=== PATIENT | male | born 1955 | race Hispanic/Latino ===

== ENCOUNTER 2017-03-06 13:47 | Emergency (ER) | payer MEDICARE ==
--- NOTE | 2017-03-06 14:16 | C.PDOC ---
History Of Present Illness 61 y/o male with history of depression, alcoholism, and polysubstance abuse, presents to ER requesting detox. Patient also reports history of liver disease. Pt states he has suicidal thoughts when drinking. Denies headache, nausea, or vomiting. Chief Complaint (Nursing): Substance Abuse History Per: Patient History/Exam Limitations: no limitations Onset/Duration Of Symptoms: Persistent Current Symptoms Are (Timing): Still Present Modifying Factor(s): Alcohol Associated Symptoms: Depression Recent travel outside of the [place]: No Past Medical History Reviewed: Historical Data, Nursing Documentation, Vital Signs Vital Signs: Last Vital Signs Temp 98.6 F 03/06/17 16:33 Pulse 67 03/06/17 16:33 Resp 16 03/06/17 16:33 BP 126/83 03/06/17 16:33 Pulse Ox 95 03/06/17 16:33 - Medical History PMH: Anxiety, Hepatitis, HIV (HIV+) Denies: Chronic Kidney Disease (Denied) - [facility] Procedures DETOXIFICATION SERVICES FOR SUBSTANCE ABUSE TREATMENT (12/31/16) GROUP FLOOR COVERINGS INSTALLER FOR SUBSTANCE ABUSE TREATMENT, PSYCHOEDUCATION (12/31/16) GROUP FLOOR COVERINGS INSTALLER FOR SUBSTANCE ABUSE, COGNITIVE BEHAVIORAL (12/31/16) INDIV FLOOR COVERINGS INSTALLER FOR SUBSTANCE ABUSE TREATMENT, PSYCHOEDUCATION (12/31/16) INDIV FLOOR COVERINGS INSTALLER FOR SUBSTANCE ABUSE, COGNITIVE BEHAVIORAL (12/31/16) INDIV PSYCHOTHERAPY FOR SUBSTANCE ABUSE TREATMENT, SUPPORT (12/31/16) Family History: States: Unknown Family Hx - Social History Hx Tobacco Use: Yes (former smoker) Hx Alcohol Use: Yes Hx Substance Use: Yes (Xanax) - Immunization History Hx Influenza Vaccination: Yes Review Of Systems Except As Marked, All Systems Reviewed And Found Negative. Constitutional: Negative for: Fever, Chills Cardiovascular: Negative for: Chest Pain, Palpitations Respiratory: Negative for: Cough Gastrointestinal: Negative for: Nausea, Vomiting, Abdominal Pain Skin: Negative for: Rash Neurological: Negative for: Weakness, Numbness, Headache Psych: Positive for: Depression Physical Exam - Physical Exam Appears: Non-toxic, Other (muscle wasting to face) Skin: Warm, Dry Head: Atraumatic, Normacephalic Eye(s): bilateral: Normal Inspection Teeth: Other (poor dentition) Chest: Symmetrical Cardiovascular: Rhythm Regular Respiratory: Normal Breath Sounds, No Rales, No Rhonchi, No Wheezing Gastrointestinal/Abdominal: Soft, No Tenderness Back: Normal Inspection Extremity: Normal ROM, Capillary Refill (< 2 sec. ) Neurological/Psych: Oriented x3, Normal Speech, Normal Cognition ED Course And Treatment - Laboratory Results Result Diagrams: 03/06/17 14:38 03/06/17 14:38 O2 Sat by Pulse Oximetry: 97 (RA) Pulse Ox Interpretation: Normal Medical Decision Making Medical Decision Making: patient seen and evaluated by crisis, they discussed with psych. he does not meet detox criteria at this time. Disposition Counseled Patient/Family Regarding: Studies Performed, Diagnosis, Need For Followup - Disposition Disposition: HOME/ ROUTINE Disposition Time: 17:42 Condition: STABLE Additional Instructions: Please follow up with your doctor. If you want to be seen by psychiatry please call the counceling and resource center at: [phone] Instructions: Abuse of Alcohol (ED) Forms: General Discharge Instructions - POA Present On Arrival: None - Clinical Impression Clinical Impression: Alcohol abuse - Scribe Statement The provider has reviewed the documentation as recorded by the Raffi Gomez Provider Scribe Attestation: All medical record entries made by the Arceliaibelba were at my direction and personally dictated by me. I have reviewed the chart and agree that the record accurately reflects my personal performance of the history, physical exam, medical decision making, and the department course for this patient. I have also personally directed, reviewed, and agree with the discharge instructions and disposition.
[2017-03-06 14:41] LABS: BASO % 0.2 % (0.0-2.0); EOS % 0.1 % (0.0-4.0); HEMATOCRIT 38.1 % (35.0-51.0); LYMPH # 0.9 K/uL (1.0-4.3); LYMPH % 11.7 % (20.0-40.0); MEAN CELL VOLUME 87.4 fL (80.0-94.0); MEAN CORPUSCULAR HEMOGLOBIN 27.9 pg (27.0-31.0); MEAN CORPUSCULAR HGB CONC 31.9 g/dL (33.0-37.0); MEAN PLATELET VOLUME 8.6 fL (7.2-11.7); MONO # 0.5 K/uL (0.0-0.8); MONO % 6.8 % (0.0-10.0); RED CELL DISTRIBUTION WIDTH 15.6 % (11.5-14.5); WHITE BLOOD COUNT 7.3 K/uL (4.8-10.8)
[2017-03-06 14:49] LABS: CHLORIDE 99 mmol/L (98-107)
[2017-03-06 14:50] LABS: POTASSIUM 3.7 mmol/L (3.6-5.2); SODIUM 138 mmol/L (132-148)
[2017-03-06 14:52] LABS: ALB/GLOB RATIO 1.6 (1.0-2.1); ALKALINE PHOSPHATASE 54 U/L (38-126); ALT/SGPT 44 U/L (21-72); AST/SGOT 51 U/L (17-59); BILIRUBIN,TOTAL 1.6 mg/dL (0.2-1.3); BLOOD UREA NITROGEN 31 mg/dL (9-20); CARBON DIOXIDE 28 mmol/L (22-30); GFR AFRICAN-AMERICAN > 60; GLUCOSE,RANDOM 102 mg/dL (75-110); TOTAL PROTEIN 6.3 g/dL (6.3-8.3)
[2017-03-06 14:53] LABS: ALCOHOL SERUM 28 mg/dl (0-10); CALCIUM 8.6 mg/dl (8.6-10.4)
[2017-03-06 15:19] LABS: RBC URINE 2 /hpf (0-3); URINE BILIRUBIN NEGATIVE (NEGATIVE); URINE BLOOD NEGATIVE (NEGATIVE); URINE COLOR Yellow (YELLOW); URINE GLUCOSE (UA) NORMAL (Normal); URINE KETONE NEGATIVE (NEGATIVE); URINE LEUKOCYTE ESTERASE NEG Leu/uL (Negative); URINE PROTEIN NEGATIVE (NEGATIVE); WBC URINE 2 /hpf (0-5)
[2017-03-06 16:34] VITALS: RESP 16; TEMP 98.6
[2017-03-06 17:44] VITALS: O2SAT 97
[2017-03-06 17:51] VITALS: BP 110/84; PULSE 80
== END 2017-03-06 17:50 | disposition home or self-care (01) ==
LOC: C.ER 13:47
DX: F10.10 Alcohol abuse, uncomplicated (principal); Y90.1 Blood alcohol level of 20-39 mg/100 ml
CPT/HCPCS: 80053; 81001; 85025; 99283; G0480